=== PATIENT | male | born 1945 | race Caucasian/White ===

== ENCOUNTER 2016-10-12 04:42 | Inpatient (IN) ==
[2016-10-03 13:31] LABS: Appearance,Urine CLEAR; Bacteria,Urine 0 /hpf (0); Bilirubin,Urine NEG (NEG); Color,Urine YELLOW; Glucose,Urine (UA) NEGATIVE (NEG); Leukocyte Esterase,Urine 500 /uL (NEG); Mucus,Urine FEW /hpf (0); Nitrate,Urine NEG (NEG); Protein,Urine NEG (NEG); Specific Gravity,Urine 1.019 (1.000-1.035); Urine Blood NEG mg/dL (<0.03); Urine Hyaline Cast 1 /lpf (0-2); Urine RBC 1 /hpf (0-1); Urine Squamous Epithelial Cell 0 /hpf (0-4); Urine Transitional Epi Cells < 1 /hpf (0-2); Urine WBC 6 /hpf (0-4); Urobilinogen,Urine NEG (NEG)
[2016-10-03 14:12] LABS: Basophils # (Auto) 0 K/mcL (0.0-0.3); Basophils % (Auto) 0.5 % (0.0-2.0); Eosinophils # (Auto) 0.2 K/mcL (0.0-0.7); Eosinophils % (Auto) 2.3 % (0.0-7.0); Lymphocytes # (Auto) 1.7 K/mcL (1.5-4.8); Lymphocytes % (Auto) 21.1 % (15.5-49.0); Mean Cell Volume 96.9 fL (80.0-100.0); Mean Corpuscular HGB Conc 33.3 g/dL (31.0-36.0); Mean Corpuscular Hemoglobin 32.2 pg (26.0-34.0); Monocytes # (Auto) 0.6 K/mcL (0.1-0.9); Monocytes % (Auto) 8.1 % (1.0-12.0); Platelet Count 201 K/mcL (140-440); RBC 4.82 M/mcL (4.50-5.90)
[2016-10-03 14:25] LABS: Blood Urea Nitrogen 14 mg/dl (8-23)
[2016-10-12] MEDS ORDERED: CELECOXIB 200 MG CAPSULE PO SCH (06:00)
[2016-10-12] MEDS ORDERED: ceFAZolin 1 GM VIAL IV SCH (06:00)
[2016-10-12] MEDS ORDERED: oxyCODONE 10 MG TAB.ER.12H PO SCH (06:00)
[2016-10-12] MEDS ORDERED: PREGABALIN 75 MG CAPSULE PO SCH (06:00)
[2016-10-12 06:08] LABS: Appearance,Urine CLEAR; Bacteria,Urine 0 /hpf (0); Bilirubin,Urine NEG (NEG); Color,Urine YELLOW; Glucose,Urine (UA) NEGATIVE (NEG); Leukocyte Esterase,Urine 25 /uL (NEG); Mucus,Urine MOD /hpf (0); Nitrate,Urine NEG (NEG); Protein,Urine NEG (NEG); Specific Gravity,Urine 1.021 (1.000-1.035); Urine Blood 0.03 mg/dL (<0.03); Urine RBC 3 /hpf (0-1); Urine Squamous Epithelial Cell < 1 /hpf (0-4); Urine Transitional Epi Cells < 1 /hpf (0-2); Urine WBC 7 /hpf (0-4); Urobilinogen,Urine NEG (NEG)
[2016-10-12] MEDS ORDERED: CIPROFLOXACIN 400 MG/200 ML BAG IV ONE (07:19)
[2016-10-12] MEDS ORDERED: LIDOCAINE HCL/PF 100 MG/5 ML SYRINGE IV ONE (07:40)
[2016-10-12] MEDS ORDERED: MIDAZOLAM 5 MG/5 ML VIAL IV ONE (07:40)
[2016-10-12] MEDS ORDERED: ePHEDrine 50 MG/ML AMPUL IV ONE (07:40)
[2016-10-12] MEDS ORDERED: ONDANSETRON 4 MG/2 ML VIAL IV ONE (07:40)
[2016-10-12] MEDS ORDERED: DEXAMETHASONE 10 MG/ML VIAL IV ONE (07:40)
[2016-10-12] MEDS ORDERED: TRANEXAMIC ACID 1,000 MG/10 ML VIAL IV ONE ×2 (07:40→09:18)
[2016-10-12] MEDS ORDERED: PROPOFOL 200 MG/20 ML VIAL IV ONE (07:41)
[2016-10-12] MEDS ORDERED: HEPARIN 20,000 UNIT/ML VIAL IR ONE (08:25)
[2016-10-12] MEDS ORDERED: LACTATED RINGERS 250 ML IV PRN (09:15)
[2016-10-12] MEDS ORDERED: BENZOCAINE/MENTHOL 1 LOZENGE PO PRN ×2 (09:15→09:18)
[2016-10-12] MEDS ORDERED: ONDANSETRON 4 MG/2 ML VIAL IV PRN ×2 (09:15→09:18)
[2016-10-12] MEDS ORDERED: HYDROmorphone 2 MG/ML SYRINGE IV PRN (09:15)
[2016-10-12] MEDS ORDERED: IPRATROPIUM/ALBUTEROL 3 ML AMPUL.NEB NEB PRN (09:15)
[2016-10-12] MEDS ORDERED: LACTATED RINGERS 1,000 ML IV SCH (09:15)
[2016-10-12] MEDS ORDERED: NALOXONE HCL 0.4 MG/ML VIAL IV PRN (09:15)
[2016-10-12] MEDS ORDERED: FLUMAZENIL 0.1 MG/ML ML IV PRN (09:15)
[2016-10-12] MEDS ORDERED: MEPERIDINE 25 MG/ML SYRINGE IV PRN (09:15)
[2016-10-12] MEDS ORDERED: fentaNYL 100 MCG/2 ML VIAL IV PRN (09:15)
[2016-10-12] MEDS ORDERED: diphenhydrAMINE 50 MG/ML VIAL IV PRN (09:15)
[2016-10-12] MEDS ORDERED: METHOCARBAMOL 1,000 MG/10 ML VIAL IV PRN (09:15)
[2016-10-12] MEDS ORDERED: FLEETS ADULT ENEMA PR PRN (09:18)
[2016-10-12] MEDS ORDERED: BISACODYL 10 MG SUPP.RECT PR PRN (09:18)
[2016-10-12] MEDS ORDERED: MAGNESIUM HYDROXIDE 30 ML ORAL.SUSP PO PRN (09:18)
[2016-10-12] MEDS ORDERED: POLYETHYLENE GLYCOL 3350 17 GM PACKET PO PRN (09:18)
[2016-10-12] MEDS ORDERED: KETOROLAC 30 MG/ML VIAL IV PRN (09:18)
--- NOTE | 2016-10-12 09:18 | Brief Operative Note ---
Date of procedure: 10/12/16 Pre-op diagnosis: Left hip DJD Post-op diagnosis: same Procedure: Left anterior total hip arthroplasty Grafts/Implants: Yes (Depuy Corail 16 std, 36mm ceramic head +1.5, 60 mm cup, neutral liner) Anesthesia: spinal, GLMA Findings: severe arthritis Complications: none Surgeon: Jaciel Valladares Special Education Administrator: Rah Delgado Estimated blood loss (cc): 200 Specimens Removed/Pathology: none sent Condition: stable Disposition: PACU
[2016-10-12] MEDS ORDERED: COAL TAR TOPICAL PRN (09:23)
[2016-10-12] MEDS: 0.9 % SODIUM CHLORIDE 1,000 ML IV SCH (10:12)
--- NOTE | 2016-10-12 10:12 | XRay Report ---
CLINICAL INFORMATION: Postsurgical follow-up TECHNIQUE: AP pelvis. AP and lateral left hip. COMPARISON: Preoperative evaluation dated 11/25/2009 FINDINGS: Status post left total hip arthroplasty. Acetabular and femoral head complements are in anatomic positions. There are skin zane overlying the left hip. IMPRESSION: Left total hip arthroplasty Interpreted and Authenticated by: Roberto Smart 10/12/16
--- NOTE | 2016-10-12 10:31 | Operative Note ---
DATE OF OPERATION: 10/12/2016 PREOPERATIVE DIAGNOSIS: Left hip severe osteoarthritis. POSTOPERATIVE DIAGNOSIS: Left hip severe osteoarthritis. PROCEDURE PERFORMED: Left anterior total hip arthroplasty using a DePuy Corail size 16 standard offset femoral stem; a +1.5, 36 mm delta ceramic head ball; a size 60 mm 3-hole [place] cup with a neutral AltrX liner. SURGEON: Jaciel Valladares MD. COMMUNICATIONS CONTROLLER: Wing Delgado PA-C. ANESTHESIA: Spinal plus general. DRAINS: None. SPECIMENS: Femoral head and reamings, which were discarded. BLOOD LOSS: 200 mL. COMPLICATIONS: None. POSTOPERATIVE CONDITION: Stable. INDICATIONS FOR SURGERY: This is a 70-year-old male with longstanding left hip pain. Radiographs showed severe dqoh-mt-damy osteoarthritis. He had had a previous right total hip arthroplasty with excellent result. FINDINGS AT SURGERY: As above. Post implantation showed excellent component position with equalization of leg length and offset. PROCEDURE IN DETAIL: The patient had been seen preoperatively and informed consent had been obtained after discussion of risks and benefits of surgery. Risks including, but not limited to, bleeding, possibly requiring transfusion; infection, possibly requiring implant removal and prolonged IV antibiotics; injury to nerves, blood vessels, and other surrounding structures; anesthetic risks; incomplete or no resolution of symptoms; leg length discrepancy; dislocation; fracture; DVT and pulmonary embolus risks; and the possibility of needing further surgery. He understood these risks and wished to proceed. Correct operative site was marked and then patient was taken to the operating room. General anesthesia was induced after he received spinal in preop holding. He was carefully positioned on the fracture table and then the left hip and groin were carefully prepped and draped in normal sterile fashion. Time out was performed verifying patient name, operative site, and plan. Standard anterior approach incision was made with a scalpel through skin and subcutaneous tissue and then hemostasis obtained with Bovie cautery. Irrisept was irrigated after undermining circumferentially and then we placed a ring retractor. The tensor fascia was rather friable. We went ahead and incised over the top of it and then bluntly dissected medial to the muscle belly. Blunt cobra retractors were placed on the superior and inferior neck. Circumflex vessels were coagulated and cut and vastus fascia was split distally. We then performed an anterior capsulectomy and released capsule out towards the trochanters. Corkscrew was placed in the femoral head. Osteotome was used under fluoroscopy to identify our neck cut level. We went ahead and used an oscillating saw then to perform osteotomy, and the femoral head was removed. Acetabulum was exposed and soft tissue removed from the periphery, as well as from the floor. We then used the reamer to directly medialize and increased our reamer size up to a size 59 reamer before we got rim ream. We opened a 60 cup. We irrigated the acetabulum with Irrisept. After a minute we pulse lavaged copiously with saline. The cup was then impacted about 40 degrees of inclination and 25 degrees of anteversion. We did get excellent press fit. However, it looked like we were a millimeter or so off from being fully seated. I went ahead and drilled and placed a screw in the posterior superior quadrant to try and close this gap down. This was a 30 mm screw. We did then place a center hole cover, and then a neutral AltrX liner was carefully aligned and impacted. We did remove inferior osteophytes and some anterior superior osteophyte. We then externally rotated the leg maximally and released capsule around the medial and posterior neck. The leg had traction removed and we extended and adducted. A box osteotome was used to gain canal entry and awl to identify the canal trajectory. A rongeur and rasp were used to lateralize, and then we began sequentially broaching with the Corail broaches up to a size 15. This seated a little below our neck cut. We went ahead and calcar planed. A standard offset neck and a +1.5 head ball were placed. The hip was reduced. AP pelvis was taken to verify neutral rotation. An AP of the nonoperative and operative hips were taken and overlaid. We were a bit short. We went ahead and redislocated. We were able to impact the 15 down below our neck cut, so we went ahead and removed this, went up to 16. We opened the 16 Corail stem. We irrigated Irrisept down the canal after removing the broach. We then after a minute pulse lavaged copiously with saline. We then impacted the stem after copious irrigation. This seated a little above our neck cut, so we opened a +1.5, 36 mm head ball. The hip was reduced after impacting the head ball briskly onto the stem. Final fluoro images were taken which showed symmetrical leg length and offset. We did another Irrisept irrigation. After waiting a minute, we pulse lavaged copiously with saline. The tensor fascia was closed if possible, although again this was friable tissue that was not much to close. Once this was done, we removed the ring retractor, did a final Irrisept irrigation, and closed our deep fat followed by subcutaneous with 2-0 Monocryl, zane for skin. Xeroform and sterile dressing were applied. The patient was then awakened, extubated, and transferred to recovery in stable condition. BJB:[email or web address] Job ID: [id number] Doc ID: [id number] Jaciel Valladares MD
[2016-10-12] MEDS: 0.9 % SODIUM CHLORIDE 10 ML SYRINGE IV SCH ×2 (14:08→21:43)
[2016-10-12] MEDS: ceFAZolin 1 GM VIAL IV SCH ×2 (16:47→23:25)
[2016-10-12] MEDS ORDERED: SENNOSIDES 1 TABLET PO SCH (21:00)
[2016-10-12] MEDS: Budesonide/Formoterol Fumarate [Symbicort] 80-4.5 mcg Inhaler INH SCH (21:42)
[2016-10-12] MEDS: FAMOTIDINE 20 MG TABLET PO SCH (21:42)
[2016-10-12] MEDS: DOCUSATE SODIUM 100 MG CAPSULE PO SCH (21:42)
[2016-10-12] MEDS: ASPIRIN 325 MG ENTERIC COATED TABLET PO SCH (21:42)
[2016-10-12] MEDS: HYDROcodone/APAP 10/325MG TABLET PO PRN (23:06)
[2016-10-13] MEDS: 0.9 % SODIUM CHLORIDE 1,000 ML IV SCH ×2 (01:20→05:29)
[2016-10-13] MEDS: HYDROcodone/APAP 10/325MG TABLET PO PRN (05:22)
[2016-10-13] MEDS: 0.9 % SODIUM CHLORIDE 10 ML SYRINGE IV SCH (05:29)
--- NOTE | 2016-10-13 05:40 | Discharge Summary ---
Ortho Discharge - [facility] - Patient Instructions Diet: Regular Diet Activity: activity as tolerated, weight bearing as tolerated Total Hip Protocol: Follow activity instructions as provided by Physical Therapy. Dressing Care: May shower in 2 days, Aquacel Ag - leave on for 5 days Patient Education: Total Hip Replacement (DC) Additional Instructions: Discharge Instructions: Do the exercises at home that physical therapy gave you. Take your prescription, photo ID, insurance cards, and current medication list with you to your first physical therapy appointment. Take your prescription to pick remover any medication or equipment (such as walker, crutches, toilet riser or C.P.M.) Wear comfortable clothing for your physical therapy. Weight bearing as tolerated. If you have the Aquacel Ag dressing, leave in place for 7 days then remove. If dressing becomes soiled (turns black), remove and use gauze 4x4 dressing and silvasorb ointment and change daily. Keep incision clean and dry. If you have Dermabond (a dressing with a mesh-like appearance), leave open to air. You may start showering on post op day #2. The Dermabond dressing can get wet, do not scrub dressing. Pat dry. To avoid constipation while taking any narcotic pain medication, take an over the counter stool softener/laxative. Use your Cryocuff or ice packs as directed, on for 20 minutes at a time throughout the day. This and elevation will help with pain and swelling. Call your physician for fevers above 100.5 or pain not controlled by medication. Your prescriptions are with your discharge information. Some medications were electronically transmitted to your pharmacy of choice. - Follow Up Plan Follow Up Appointments: Jaciel Valladares MD [Physician] - 10/27/16 9:20 am Disposition: Home, Self-Care Prognosis: Good Rehab Potential: Good - Orders For Discharge Additional Discharge Orders: Physical Therapy at Discharge - [facility] Location: Determined By Patient Toilet Riser Discharge Order Location: Determined By Patient Walker Location: Determined By Patient
--- NOTE | 2016-10-13 06:11 | Orthopedic Progress Note ---
Subjective Patient information: Note initiated : 10/13/16 at 6:09 am Service Date, if different from initiated Date: [] Patient: Luiz Sosa 70 y/o M admitted on 10/12/16 for Left Total Hip Arthroplasty Anterior. Chief Complaint: [] Principal diagnosis: s/p L [facility] Interval history: pain controlled, wants to go home Objective Vital signs: Vital Signs Temp Pulse Resp BP BP Pulse Ox 10/13/16 03:26 97.0 F 66 16 108/68 97 10/12/16 20:00 97.7 F 91 H 20 117/68 95 10/12/16 15:28 96.8 F L 20 113/72 96 10/12/16 13:10 115/75 98 10/12/16 12:10 86 106/68 99 10/12/16 11:40 111/73 100 10/12/16 11:10 117/77 100 10/12/16 10:55 136/75 98 10/12/16 10:40 115/72 99 10/12/16 10:26 97.9 F 80 15 109/55 100 10/12/16 10:25 97.9 F 12 108/65 99 10/12/16 10:21 82 16 101/58 100 10/12/16 10:06 95 H 11 L 102/59 100 10/12/16 09:51 97.9 F 83 15 118/72 100 10/12/16 09:46 65 13 108/46 99 10/12/16 09:41 67 12 106/51 98 10/12/16 09:36 97.5 F 76 14 104/46 99 10/12/16 06:48 97.1 F 16 148/83 97 Intake and Output 10/12/16 10/13/16 10/13/16 21:59 05:59 13:59 Intake Total 96 / 96 Output Total 775 / 775 450 / 450 Balance -679 / -679 -450 / -450 Intake: IV 96 / 96 Sodium Chloride 0.9% 1, 96 / 96 000 ml @ 100 mls/hr IV . Q10H [facility] Rx#:[id number] Output: Void Amount 775 / 775 450 / 450 Straight 575 / 575 Other: Weight 161 lb Intake & Output: Intake & Output 10/12/16 10/13/16 10/13/16 21:59 05:59 13:59 Intake Total 96 / 96 Output Total 775 / 775 450 / 450 Balance -679 / -679 -450 / -450 Weight 161 lb Intake: IV 96 / 96 Sodium Chloride 0.9% 1, 96 / 96 000 ml @ 100 mls/hr IV . Q10H [facility] Rx#:[id number] Output: Void Amount 775 / 775 450 / 450 Straight 575 / 575 Dressing: Yes clean Weight bearing status: as tolerated Extremities exam IM: Yes neurovascular intact - Labs CBC & BMP: 10/03/16 11:27 10/03/16 11:26 Labs: Orthopedic Labs 10/03/16 11:27 PT 12.9 INR 1.0 10/13/16 10/03/16 04:22 11:27 Hgb Pending 15.5 Hct Pending 46.7 Assessment and Plan (1) Status post total hip replacement, left POD#1 doing well, no complaints -d/c home Status: Acute
[2016-10-13] MEDS: DOCUSATE SODIUM 100 MG CAPSULE PO SCH (08:54)
[2016-10-13] MEDS: ASPIRIN 325 MG ENTERIC COATED TABLET PO SCH (08:54)
[2016-10-13] MEDS: FAMOTIDINE 20 MG TABLET PO SCH (08:54)
[2016-10-13] MEDS: Budesonide/Formoterol Fumarate [Symbicort] 80-4.5 mcg Inhaler INH SCH (08:55)
== END 2016-10-13 11:10 | disposition home or self-care (01) | DRG 470 ==
LOC: MEDSUR 04:42
PROVIDERS: ADMIT Orthopaedic Surgery; ATTEND Orthopaedic Surgery